=== PATIENT | female | born 1970 | race Caucasian/White ===

== ENCOUNTER 2020-01-23 10:57 | Emergency (ER) | payer OTHER ==
[~2020-01-23] VITALS: Ht 165.1 cm; Wt 64.9 kg
[~2020-01-23 10:57] MED LIST: BENTYL10 MG/ML
== END 2020-01-23 15:17 | disposition home or self-care (01) ==
LOC: ER 10:57
DX: R31.29 Other microscopic hematuria (principal); K57.32 Diverticulitis of large intestine without perforation or abscess without bleeding; R10.31 Right lower quadrant pain